=== PATIENT | female | born 1965 | race Caucasian/White ===

== ENCOUNTER 2021-04-16 02:00 | Observation (INO) | payer MEDICAID ==
[2021-04-16] VITALS (17 sets, daily range): BP systolic 110–150; BP diastolic 55–80
[~2021-04-16] VITALS: Ht 167.6 cm; Wt 92.5 kg
[2021-04-16 03:16] LABS: CLARITY,URINE CLEAR (Clear); COLOR,URINE YELLOW (Yellow); GLUCOSE, URINE NEGATIVE (Neg); KETONES,URINE 15 mg/dl (Neg); LEUKOCYTE ESTERASE ,URINE NEGATIVE (Neg); NITRITES, URINE NEGATIVE (Neg); OCCULT BLOOD,URINE NEGATIVE (Neg); PROTEIN,URINE NEGATIVE (Neg); UROBILINOGEN,URINE 0.2 E.U/dL (0.2-1.0)
[2021-04-16 03:19] LABS: UA COLLECTION TYPE CLN CATCH MIDSTREAM
[2021-04-16 04:09] LABS: BASOPHILS % (AUTO) 0.6 % (0-1); EOSINOPHILS # (AUTO) 0.2 X10'3 (0-0.9); HEMATOCRIT 39.6 % (35.0-45.0); HEMOGLOBIN 13.4 g/dl (12.0-16.0); LYMPHOCYTES # (AUTO) 2.2 X10'3 (1.1-4.8); LYMPHOCYTES % (AUTO) 28.8 % (21-51); MEAN CORPUSCULAR HEMOGLOBIN 27.9 PG (27.0-31.0); MEAN CORPUSCULAR HGB CONC 33.9 g/dL (33.0-36.5); MEAN CORPUSCULAR VOLUME 82.1 FL (78-98); MONOCYTES # (AUTO) 0.6 X10'3 (0-0.9); MONOCYTES % (AUTO) 8.4 % (2-12); NEUTROPHILS # (AUTO) 4.7 X10'3 (1.8-7.7); NEUTROPHILS % (AUTO) 60.2 % (42-75); PLATELET COUNT 190 X10'3 (140-440); RED BLOOD COUNT 4.82 X10'6 (4.20-5.60); RED CELL DISTRIBUTION WIDTH 13.1 % (11.5-14.5); WHITE BLOOD COUNT 7.8 X10'3 (4.5-11.0)
[2021-04-16 04:20] LABS: ALANINE AMINOTRANSFERASE 36 U/L (12-78); ALBUMIN 3.7 G/DL (3.4-5.0); ALBUMIN/GLOBULIN RATIO 0.9 (1.1-1.5); ALKALINE PHOSPHATASE 93 IU/L (46-116); ANION GAP 9 (8-16); ASPARTATE AMINO TRANSFERASE 13 U/L (10-37); BILIRUBIN,TOTAL 0.6 MG/DL (0.1-1.0); BLOOD UREA NITROGEN 27 MG/DL (7-18); CALCIUM 9.9 MG/DL (8.5-10.1); CHLORIDE 107 MMOL/L (99-107); GLUCOSE 123 MG/DL (70-104); LIPASE 238 U/L (73-393); POTASSIUM 4.6 MMOL/L (3.5-5.1); SODIUM 144 MMOL/L (135-145); TOTAL CARBON DIOXIDE 27.7 MMOL/L (24-32); TOTAL PROTEIN 7.6 G/DL (6.4-8.2); eGFR 58 ML/MIN
[2021-04-16] MEDS ORDERED: metoclopramide 5 mg/ml inj IV ONE (05:35)
[2021-04-16] MEDS ORDERED: normal saline 1000ML IV soln IVB ONE (05:35)
[2021-04-16] MEDS ORDERED: ketorolac tromethamine 15mg/ml inj. IV ONE (05:35)
[2021-04-16] MEDS ORDERED: METO5TAB85 PO (06:12)
[2021-04-16] MEDS: normal saline 1000ML IV soln IVB ONE ×2 (07:55→09:15)
[2021-04-16] MEDS ORDERED: piperacillin/tazo 3.375gm/50ml 50 ML IV ONE (07:55)
[2021-04-16] MEDS ORDERED: dextrose ORAL solution 15 GM/59 ML bottle PO PRN ×2 (08:15)
[2021-04-16] MEDS ORDERED: morphine 2 MG/ML inj. syringe IV PRN ×3 (08:15→16:15)
[2021-04-16] MEDS ORDERED: insulin Lispro (HumaLOG) vial - multi-dose SQ SCH (08:15)
[2021-04-16] MEDS ORDERED: potassium Cl 20 mEq SR tablet PO PRN ×2 (08:15)
[2021-04-16] MEDS ORDERED: mag hydrox/Alum hydrox/simeth 30ml oral suspension PO PRN (08:15)
[2021-04-16] MEDS ORDERED: glucagon, human recombinant 1mg kit SUBCUT PRN (08:15)
[2021-04-16] MEDS ORDERED: MESSAGE TO PHARMACY PO ONE (08:15)
[2021-04-16] MEDS ORDERED: magnesium 2GM in 50ml NS 50 ML IV PRN (08:15)
[2021-04-16] MEDS ORDERED: dextrose 50%-water 50ml dispensing syringe IV PRN ×2 (08:15)
[2021-04-16] MEDS ORDERED: magnesium 4gm in 100ml NS 100 ML IV PRN (08:15)
[2021-04-16] MEDS ORDERED: potassium Cl 40MEQ/1/2NS 520ml 520 ML IV PRN ×2 (08:15)
[2021-04-16] MEDS ORDERED: ondansetron/PF 4mg/2ml inj IV PRN ×2 (08:15→16:15)
[2021-04-16] MEDS ORDERED: magnesium hydroxide 30ml (MOM) UD suspension PO PRN (08:15)
[2021-04-16] MEDS ORDERED: acetaminophen 325mg tablet PO PRN (08:15)
[2021-04-16 08:49] LABS: HEMOGLOBIN A1C 6.7 % (4.5-6.2)
[2021-04-16] MEDS ORDERED: DICY10CA14 PO (09:07)
[2021-04-16] MEDS ORDERED: LISI-642 PO (09:07)
[2021-04-16] MEDS ORDERED: OXYB10TA4 PO (09:07)
[2021-04-16] MEDS ORDERED: GLIP10TA11 PO (09:07)
[2021-04-16] MEDS ORDERED: CALC1CAP34 PO (09:07)
[2021-04-16] MEDS ORDERED: ATOR40TA PO (09:07)
[2021-04-16] MEDS ORDERED: ASPI-1265 PO (09:07)
[2021-04-16] MEDS ORDERED: ASPI81TA52 PO (09:52)
[2021-04-16] MEDS: normal saline 1000ml 1,000 ML IV SCH ×2 (11:20→20:35)
[2021-04-16] MEDS ORDERED: BUPIVAcaine/PF 2.5 mg/ml (0.25%) 30ml vial ONE (15:55)
[2021-04-16] MEDS: piperacillin/tazo 4.5gm/100ml 100 ML IV SCH (16:00)
[2021-04-16] MEDS ORDERED: proCHLORperazine 10 MG/2 ml inj IV PRN (16:15)
[2021-04-16] MEDS ORDERED: morphine 4 MG/ML inj SYRINge IV PRN (16:15)
[2021-04-16] MEDS ORDERED: ringers solution, lacted 1,000 ML IV SCH (16:15)
[2021-04-16] MEDS ORDERED: meperidine/PF 25mg/ml syringe IV PRN ×3 (16:15)
[2021-04-16] MEDS ORDERED: sevoflurane 250ml liquid IH ONE (16:16)
[2021-04-16] MEDS ORDERED: fentaNYL/PF 50MCG/1 ML 2ML syringe ONE ×2 (16:23→16:24)
[2021-04-16] MEDS ORDERED: midazolam 1 mg/ML 2ml injection ONE (16:23)
[2021-04-16] MEDS ORDERED: propofol inj 20 ML IV ONE (16:26)
[2021-04-16] MEDS ORDERED: rocuronium 10mg/ml inj IV ONE (16:48)
[2021-04-16] MEDS ORDERED: ondansetron/PF 4mg/2ml inj ONE (16:49)
[2021-04-16] MEDS ORDERED: neostigmine methylsulfate 1 MG/ML 10ml vial ONE (16:54)
[2021-04-16] MEDS ORDERED: glycopyrrolate 0.2mg/ml inj ONE (16:54)
[2021-04-16 17:00] LABS: PRE OP INR 1.1 INR
--- NOTE | 2021-04-16 17:20 | NUR ---
ADMITTED TO PACU FROM OR ACCOMPANIED BY ANESTHESIA. INTIAL PHYSICAL ASSESSMENT DONE AND RECORDED. REPORT RECEIVED FROM ANESTHESIA.
--- NOTE | 2021-04-16 18:20 | NUR ---
PACU DISCHARGE CRITERIA MET, REPORT GIVEN TO FLOOR. DENIES PAIN OR DISCOMFORT. PT IS STABLE AND ADEQUATELY RECOVERED FROM ANESTHESIA. PT HAS STABLE AIRWAY PATENCY, RESPIRATORY FUNCTION TO INCLUDE RESPIRATORY RATE AND O2 SAT. HEART RATE, BLOOD PRESSURE STABLE AND HYDRATION ADEQUATE. MENTAL STATUS IS APPROPRIATE. PAIN AND NAUSEA CONTROLLED. REFER TO PACU SPREADSHEET FOR VITAL SIGNS.
--- NOTE | 2021-04-16 18:35 | NUR ---
Problems reprioritized. Patient report given, questions answered & plan of care reviewed with Pat RN.
[2021-04-16] MEDS ORDERED: enoxaparin 40mg/0.4ml syringe SQ SCH (20:00)
[2021-04-16] MEDS: K and/or MAG REPLACEMENT MC SCH (20:00)
[2021-04-16] MEDS: lactobacillus rhamnosus 10,000 MMU CELLS/CAPSULE PO SCH (20:23)
[2021-04-16] MEDS ORDERED: insulin glargine (Lantus) pen - multi-dose SQ SCH (21:00)
[2021-04-17 00:39] VITALS: BP 142/67
[2021-04-17] MEDS: piperacillin/tazo 4.5gm/100ml 100 ML IV SCH ×2 (00:46→08:04)
[2021-04-17] MEDS ORDERED: aspirin/acetaminophen/caffeine tablet PO PRN (01:30)
[2021-04-17] MEDS: normal saline 1000ml 1,000 ML IV SCH ×2 (04:15→05:30)
[2021-04-17 04:30] VITALS: BP 115/50
--- NOTE | 2021-04-17 06:25 | NUR ---
Patient in room [facility] 348B. I have received report from Pat RN and had the opportunity to ask questions and assume patient care.
[2021-04-17 07:00] VITALS: BP 150/69
[2021-04-17] MEDS: K and/or MAG REPLACEMENT MC SCH (08:00)
[2021-04-17] MEDS: lactobacillus rhamnosus 10,000 MMU CELLS/CAPSULE PO SCH (08:04)
[2021-04-17] MEDS ORDERED: lisinopril 5mg tablet PO SCH (08:17)
[2021-04-17] MEDS ORDERED: aspirin 81mg tablet.DR PO SCH (08:17)
[2021-04-17] MEDS ORDERED: atorvastatin 20mg tablet PO SCH (08:19)
[2021-04-17] MEDS ORDERED: calcium carbonate/vitamin D3 tablet PO SCH (08:20)
[2021-04-17] MEDS ORDERED: oxybutynin 5mg tablet PO SCH (08:20)
[2021-04-17 08:56] LABS: BASOPHILS # (AUTO) 0.1 X10'3 (0-0.2); BASOPHILS % (AUTO) 1.6 % (0-1); EOSINOPHILS % (AUTO) 0.1 % (0-6); HEMATOCRIT 34.7 % (35.0-45.0); HEMOGLOBIN 11.8 g/dl (12.0-16.0); LYMPHOCYTES # (AUTO) 1.1 X10'3 (1.1-4.8); LYMPHOCYTES % (AUTO) 12.7 % (21-51); MEAN CORPUSCULAR HEMOGLOBIN 28.1 PG (27.0-31.0); MEAN CORPUSCULAR HGB CONC 34.1 g/dL (33.0-36.5); MEAN CORPUSCULAR VOLUME 82.5 FL (78-98); MEAN PLATELET VOLUME 9.7 FL (7.4-10.4); MONOCYTES # (AUTO) 0.3 X10'3 (0-0.9); MONOCYTES % (AUTO) 3.9 % (2-12); NEUTROPHILS # (AUTO) 7.1 X10'3 (1.8-7.7); NEUTROPHILS % (AUTO) 81.7 % (42-75); PLATELET COUNT 163 X10'3 (140-440); RED BLOOD COUNT 4.21 X10'6 (4.20-5.60); RED CELL DISTRIBUTION WIDTH 12.8 % (11.5-14.5); WHITE BLOOD COUNT 8.7 X10'3 (4.5-11.0)
[2021-04-17 09:30] LABS: ALANINE AMINOTRANSFERASE 56 U/L (12-78); ALBUMIN/GLOBULIN RATIO 0.9 (1.1-1.5); ALKALINE PHOSPHATASE 77 IU/L (46-116); ANION GAP 8 (8-16); ASPARTATE AMINO TRANSFERASE 45 U/L (10-37); BILIRUBIN,TOTAL 0.5 MG/DL (0.1-1.0); BLOOD UREA NITROGEN 15 MG/DL (7-18); BUN/CREATININE RATIO 16.5 (6.6-38.0); CALCIUM 8.9 MG/DL (8.5-10.1); CHLORIDE 109 MMOL/L (99-107); CREATININE 0.91 MG/DL (0.40-0.90); GLUCOSE 172 MG/DL (70-104); MAGNESIUM 1.7 MG/DL (1.5-2.4); POTASSIUM 4.7 MMOL/L (3.5-5.1); SODIUM 142 MMOL/L (135-145); TOTAL CARBON DIOXIDE 24.9 MMOL/L (24-32); TOTAL PROTEIN 6.4 G/DL (6.4-8.2); eGFR 64 ML/MIN
[2021-04-17] MEDS ORDERED: pneumococcal 23-VAL P-sac vacc 25 mcg/0.5ml vial IMVAC ONE (10:00)
--- NOTE | 2021-04-17 10:11 | NUR ---
PAGER ID: [phone] MESSAGE: [phone] Can I get an order for Karyna Hammonds [id number] Addendum: 04/17/21 at 1012 by Nasra Soto RN Order received for Karyna
[2021-04-17] MEDS ORDERED: HYDROcodone/acetaminophen 10/325mg tab PO PRN (10:15)
[2021-04-17] MEDS ORDERED: HYDROcodone/acetaminophen 5mg/325mg tablet PO PRN (10:15)
[2021-04-17] MEDS: dicyclomine 10 MG capsule PO SCH ×2 (10:30→12:47)
[2021-04-17 11:52] VITALS: BP 158/64
--- NOTE | 2021-04-17 15:23 | NUR ---
DM Consult: Pt A1C less than 7 not appropriate for DM ed at this time. Addendum: 04/17/21 at [address] Amended: Links added.
--- NOTE | 2021-04-17 16:00 | NUR ---
Patient has been discharged on paper, waiting on a ride from family who is at work currently.
--- NOTE | 2021-04-17 16:37 | NUR ---
PAGER ID: [phone] MESSAGE: Anali - Surg [phone] Re: [phone] Kleber please call re: work release
== END 2021-04-17 17:22 | disposition home or self-care (01) ==
LOC: ER 02:01 → ED HOLD 08:15 → SUR 3N 10:34
PROVIDERS: ADMIT Family Medicine; ATTEND Family Medicine
DX: K80.00 Calculus of gallbladder with acute cholecystitis without obstruction (principal); Z20.822 Contact with and (suspected) exposure to COVID-19; E11.9 Type 2 diabetes mellitus without complications; G43.909 Migraine, unspecified, not intractable, without status migrainosus; I10 Essential (primary) hypertension; E78.5 Hyperlipidemia, unspecified; Z23 Encounter for immunization; Z79.84 Long term (current) use of oral hypoglycemic drugs; Z79.899 Other long term (current) drug therapy
CPT/HCPCS: 36415; 47562; 76700; 80053; 81003; 82948; 83036; 83690; 83735; 84145; 85025; 85610; 87081; 87635; 90471; 90732; 93005; 96361; 96365; 96366; 96372; 96375; 99285; G0378; J1885; J2250; J2270; J2405; J2543; J2704; J2710; J2765; J3010; J3490; J7030; J7120; A4215; A4618; A7000; J1650; J1815

== ENCOUNTER 2021-05-05 19:05 | Emergency (ER) | payer MEDICAID ==
[~2021-05-05] VITALS: Ht 167.6 cm; Wt 90.7 kg
[~2021-05-05 19:05] MED LIST: ASPI81TA52 PO; ATOR40TA PO; CALC1CAP34 PO; DICY10CA14 PO; GLIP10TA11 PO; LISI-642 PO; OXYB10TA4 PO
[2021-05-05 19:45] LABS: CLARITY,URINE SLIGHTLY CLOUDY (Clear); COLOR,URINE YELLOW (Yellow); GLUCOSE, URINE NEGATIVE (Neg); KETONES,URINE TRACE mg/dl (Neg); LEUKOCYTE ESTERASE ,URINE TRACE (Neg); NITRITES, URINE NEGATIVE (Neg); OCCULT BLOOD,URINE NEGATIVE (Neg); PROTEIN,URINE 100 mg/dl (Neg)
[2021-05-05 19:47] LABS: UA COLLECTION TYPE CLN CATCH MIDSTREAM
[2021-05-05 19:47] LABS: BASOPHILS # (AUTO) 0.1 X10'3 (0-0.2); BASOPHILS % (AUTO) 0.5 % (0-1); EOSINOPHILS # (AUTO) 0.1 X10'3 (0-0.9); EOSINOPHILS % (AUTO) 1.1 % (0-6); HEMATOCRIT 36.7 % (35.0-45.0); HEMOGLOBIN 12.3 g/dl (12.0-16.0); LYMPHOCYTES # (AUTO) 2.3 X10'3 (1.1-4.8); LYMPHOCYTES % (AUTO) 22.5 % (21-51); MEAN CORPUSCULAR HEMOGLOBIN 27.2 PG (27.0-31.0); MEAN CORPUSCULAR HGB CONC 33.4 g/dL (33.0-36.5); MEAN CORPUSCULAR VOLUME 81.5 FL (78-98); MEAN PLATELET VOLUME 9.6 FL (7.4-10.4); MONOCYTES # (AUTO) 0.6 X10'3 (0-0.9); MONOCYTES % (AUTO) 6.3 % (2-12); NEUTROPHILS # (AUTO) 7.1 X10'3 (1.8-7.7); NEUTROPHILS % (AUTO) 69.6 % (42-75); PLATELET COUNT 217 X10'3 (140-440); RED CELL DISTRIBUTION WIDTH 12.7 % (11.5-14.5); WHITE BLOOD COUNT 10.2 X10'3 (4.5-11.0)
[2021-05-05 19:53] LABS: BACTERIA,URINE 1+ /HPF (Neg); RBC,URINE 0-2 /HPF (0-2)
[2021-05-05 19:54] LABS: CAL OXALATE CRYSTALS 2+ /HPF (NEGATIVE); MUCUS STRANDS FEW /LPF (Neg); SQUAMOUS EPITHELIAL CELL,UR MODERATE /LPF (FEW)
[2021-05-05 19:57] LABS: ALANINE AMINOTRANSFERASE 31 U/L (12-78); ALBUMIN 3.4 G/DL (3.4-5.0); ALBUMIN/GLOBULIN RATIO 0.9 (1.1-1.5); ALKALINE PHOSPHATASE 88 IU/L (46-116); ANION GAP 13 (8-16); ASPARTATE AMINO TRANSFERASE 11 U/L (10-37); BILIRUBIN,TOTAL 0.5 MG/DL (0.1-1.0); BLOOD UREA NITROGEN 18 MG/DL (7-18); CALCIUM 9.4 MG/DL (8.5-10.1); CHLORIDE 110 MMOL/L (99-107); CREATININE 1.06 MG/DL (0.40-0.90); GLUCOSE 75 MG/DL (70-104); LIPASE 215 U/L (73-393); POTASSIUM 3.8 MMOL/L (3.5-5.1); SODIUM 147 MMOL/L (135-145); TOTAL CARBON DIOXIDE 23.6 MMOL/L (24-32); TOTAL PROTEIN 7.4 G/DL (6.4-8.2); eGFR 54 ML/MIN
[2021-05-05 22:37] VITALS: BP 115/62
== END 2021-05-05 22:38 | disposition home or self-care (01) ==
LOC: ER 19:05
DX: R19.7 Diarrhea, unspecified (principal); G89.29 Other chronic pain; E11.9 Type 2 diabetes mellitus without complications; F17.200 Nicotine dependence, unspecified, uncomplicated; Z90.49 Acquired absence of other specified parts of digestive tract; Z79.82 Long term (current) use of aspirin; Z79.899 Other long term (current) drug therapy
CPT/HCPCS: 36415; 80053; 81001; 83690; 85025; 87077; 87088; 87186; 99283

== ENCOUNTER 2022-07-04 14:29 | Emergency (ER) | payer MEDICAID ==
[~2022-07-04] VITALS: Ht 167.6 cm; Wt 79.2 kg
[2022-07-04 14:48] VITALS: BP 128/74
== END 2022-07-04 15:40 | disposition home or self-care (01) ==
LOC: ER 14:30
DX: S62.654A Nondisplaced fracture of middle phalanx of right ring finger, initial encounter for closed fracture (principal); M79.644 Pain in right finger(s); E11.9 Type 2 diabetes mellitus without complications; G89.29 Other chronic pain; Z90.49 Acquired absence of other specified parts of digestive tract; Z79.82 Long term (current) use of aspirin; Z79.899 Other long term (current) drug therapy; W18.09XA Striking against other object with subsequent fall, initial encounter; Y93.01 Activity, walking, marching and hiking; Y92.89 Other specified places as the place of occurrence of the external cause; Y99.8 Other external cause status
CPT/HCPCS: 29130; 73140; 99283

== ENCOUNTER 2022-09-22 15:30 | Emergency (ER) | payer MEDICAID ==
[~2022-09-22] VITALS: Ht 167.6 cm; Wt 74.2 kg
[2022-09-22 16:24] VITALS: BP 146/58
[2022-09-22] MEDS ORDERED: ondansetron 4mg rapidly disintigrating tab PO ONE (18:15)
[2022-09-22] MEDS ORDERED: ONDA8TAB13 PO (18:15)
[2022-09-22] MEDS ORDERED: ibuprofen tablet 400 MG TABLET PO ONE (18:15)
[2022-09-22] MEDS ORDERED: acetaminophen 325mg tablet PO ONE (18:15)
[2022-09-22] MEDS ORDERED: ibuprofen 200mg tablet PO ONE (18:20)
== END 2022-09-22 18:34 | disposition home or self-care (01) ==
LOC: ER 15:30
DX: B34.9 Viral infection, unspecified (principal); J34.89 Other specified disorders of nose and nasal sinuses; Z20.822 Contact with and (suspected) exposure to COVID-19; E11.9 Type 2 diabetes mellitus without complications; G89.29 Other chronic pain; M54.50 Low back pain, unspecified; Z90.49 Acquired absence of other specified parts of digestive tract
CPT/HCPCS: 87502; 87503; 87635; 99284; C9803

== ENCOUNTER 2023-02-09 14:05 | Emergency (ER) | payer MEDICAID ==
[~2023-02-09] VITALS: Ht 167.6 cm; Wt 74.0 kg
[~2023-02-09 14:05] MED LIST changes: +ONDA8TAB13 PO
[2023-02-09 14:44] LABS: BASOPHILS % (AUTO) 0.2 % (0-1); EOSINOPHILS # (AUTO) 0.1 X10'3 (0-0.9); EOSINOPHILS % (AUTO) 0.6 % (0-6); HEMATOCRIT 41.2 % (35.0-45.0); HEMOGLOBIN 14.1 g/dl (12.0-16.0); LYMPHOCYTES # (AUTO) 1.6 X10'3 (1.1-4.8); MEAN CORPUSCULAR HEMOGLOBIN 27.3 PG (27.0-31.0); MEAN CORPUSCULAR HGB CONC 34.1 g/dL (33.0-36.5); MEAN CORPUSCULAR VOLUME 79.9 FL (78-98); MEAN PLATELET VOLUME 9.4 FL (7.4-10.4); MONOCYTES # (AUTO) 0.6 X10'3 (0-0.9); MONOCYTES % (AUTO) 5.6 % (2-12); NEUTROPHILS # (AUTO) 7.7 X10'3 (1.8-7.7); NEUTROPHILS % (AUTO) 77.6 % (42-75); PLATELET COUNT 210 X10'3 (140-440); RED BLOOD COUNT 5.16 X10'6 (4.20-5.60); RED CELL DISTRIBUTION WIDTH 13.3 % (11.5-14.5); WHITE BLOOD COUNT 9.9 X10'3 (4.5-11.0)
[2023-02-09 15:07] LABS: ALANINE AMINOTRANSFERASE 20 U/L (12-78); ALBUMIN 3.5 G/DL (3.4-5.0); ALBUMIN/GLOBULIN RATIO 0.8 (1.1-1.5); ALKALINE PHOSPHATASE 159 IU/L (46-116); ANION GAP 7 (8-16); ASPARTATE AMINO TRANSFERASE 19 U/L (10-37); BILIRUBIN,TOTAL 0.5 MG/DL (0.1-1.0); BLOOD UREA NITROGEN 17 MG/DL (7-18); BUN/CREATININE RATIO 26.2 (10.0-20.0); CALCIUM 9.6 MG/DL (8.5-10.1); CHLORIDE 108 MMOL/L (99-107); CREATININE 0.65 MG/DL (0.40-0.90); GLUCOSE 153 MG/DL (70-104); SODIUM 142 MMOL/L (135-145); TOTAL CARBON DIOXIDE 26.8 MMOL/L (24-32); TOTAL PROTEIN 7.7 G/DL (6.4-8.2); eGFR > 90 ML/MIN
[2023-02-09] MEDS ORDERED: normal saline 1000ml 1,000 ML IV ONE ×2 (18:45→21:35)
[2023-02-09] MEDS ORDERED: metoclopramide 5 mg/ml inj IV ONE (18:45)
[2023-02-09] MEDS ORDERED: diphenhydrAMINE 50 mg/ml inj IV ONE (18:45)
[2023-02-09 20:45] VITALS: BP 153/74
[2023-02-09 21:41] LABS: CLARITY,URINE CLOUDY (Clear); COLOR,URINE YELLOW (Yellow); GLUCOSE, URINE NEGATIVE (Neg); KETONES,URINE NEGATIVE (Neg); LEUKOCYTE ESTERASE ,URINE NEGATIVE (Neg); NITRITES, URINE NEGATIVE (Neg); OCCULT BLOOD,URINE TRACE-INTACT (Neg); PROTEIN,URINE 30 mg/dl (Neg); UROBILINOGEN,URINE 0.2 E.U/dL (0.2-1.0)
[2023-02-09 21:45] LABS: UA COLLECTION TYPE CLN CATCH MIDSTREAM
[2023-02-09 21:46] LABS: SQUAMOUS EPITHELIAL CELL,UR MANY /LPF (FEW)
[2023-02-09 21:47] LABS: BACTERIA,URINE FEW /HPF (Neg); CAL OXALATE CRYSTALS 4+ /HPF (NEGATIVE); RBC,URINE 0-2 /HPF (0-2); WBC,URINE 0-4 /HPF (0-4)
[2023-02-09] MEDS ORDERED: acetaminophen 325mg tablet PO ONE (22:35)
[2023-02-09] MEDS ORDERED: ibuprofen tablet 400 MG TABLET PO ONE (22:35)
== END 2023-02-10 00:16 | disposition home or self-care (01) ==
LOC: ER 14:05
DX: R11.2 Nausea with vomiting, unspecified (principal); G43.909 Migraine, unspecified, not intractable, without status migrainosus; R10.9 Unspecified abdominal pain; R19.7 Diarrhea, unspecified; E11.9 Type 2 diabetes mellitus without complications; Z90.49 Acquired absence of other specified parts of digestive tract
CPT/HCPCS: 36415; 71045; 80053; 81001; 82948; 83880; 84484; 85025; 93005; 96361; 96374; 96375; 99285; J1200; J2765; J7030

== ENCOUNTER 2024-03-17 14:21 | Outpatient (CLI) | payer MEDICAID ==
[~2024-03-17 14:21] MED LIST changes: +DICY-19 PO; -DICY10CA14 PO
== END 2024-03-17 23:59 | disposition home or self-care (01) ==
LOC: CARD DIAG 14:21
PROVIDERS: ATTEND Family Medicine
DX: I34.81 Nonrheumatic mitral (valve) annulus calcification (principal); R55 Syncope and collapse
CPT/HCPCS: 93306

== ENCOUNTER 2024-04-16 06:49 | Emergency (ER) | payer MEDICAID ==
[~2024-04-16] VITALS: Ht 167.6 cm; Wt 84.0 kg
[2024-04-16 08:36] LABS: BASOPHILS % (AUTO) 0.2 % (0-1); EOSINOPHILS # (AUTO) 0.1 X10'3 (0-0.9); EOSINOPHILS % (AUTO) 0.8 % (0-6); HEMATOCRIT 38.6 % (35.0-45.0); HEMOGLOBIN 12.9 g/dl (12.0-16.0); LYMPHOCYTES # (AUTO) 1.4 X10'3 (1.1-4.8); LYMPHOCYTES % (AUTO) 20.1 % (21-51); MEAN CORPUSCULAR HEMOGLOBIN 26.6 PG (27.0-31.0); MEAN CORPUSCULAR HGB CONC 33.3 g/dL (33.0-36.5); MEAN CORPUSCULAR VOLUME 79.9 FL (78-98); MEAN PLATELET VOLUME 9.2 FL (7.4-10.4); MONOCYTES # (AUTO) 0.3 X10'3 (0-0.9); NEUTROPHILS # (AUTO) 5.1 X10'3 (1.8-7.7); NEUTROPHILS % (AUTO) 74.9 % (42-75); PLATELET COUNT 165 X10'3 (140-440); RED BLOOD COUNT 4.84 X10'6 (4.20-5.60); RED CELL DISTRIBUTION WIDTH 13.3 % (11.5-14.5); WHITE BLOOD COUNT 6.8 X10'3 (4.5-11.0)
[2024-04-16] MEDS: ondansetron/PF 4mg/2ml inj IV ONE (08:37)
[2024-04-16] MEDS: pantoprazole 40 MG vial IV ONE (08:38)
[2024-04-16 08:56] LABS: ALANINE AMINOTRANSFERASE 14 U/L (12-78); ALBUMIN 3.1 G/DL (3.4-5.0); ALBUMIN/GLOBULIN RATIO 0.8 (1.1-1.5); ALKALINE PHOSPHATASE 132 IU/L (46-116); ANION GAP 2 (8-16); ASPARTATE AMINO TRANSFERASE 11 U/L (10-37); BILIRUBIN,TOTAL 0.4 MG/DL (0.1-1.0); BLOOD UREA NITROGEN 14 MG/DL (7-18); BUN/CREATININE RATIO 21.5 (10.0-20.0); CALCIUM 8.8 MG/DL (8.5-10.1); CHLORIDE 109 MMOL/L (99-107); CREATININE 0.65 MG/DL (0.40-0.90); GLUCOSE 131 MG/DL (70-104); LIPASE 37 U/L (16-77); POTASSIUM 4.3 MMOL/L (3.5-5.1); SODIUM 142 MMOL/L (135-145); TOTAL CARBON DIOXIDE 31.2 MMOL/L (24-32); TOTAL PROTEIN 7.2 G/DL (6.4-8.2); eCRCL 90 ML/MIN; eGFR > 90 ML/MIN
[2024-04-16] MEDS ORDERED: PANT-47 PO (09:34)
[2024-04-16] MEDS ORDERED: LACT1CAP76 PO (09:34)
[2024-04-16] MEDS ORDERED: LISI-642 PO (09:34)
[2024-04-16] MEDS ORDERED: ONDA4TAB12 PO (09:34)
[2024-04-16] MEDS ORDERED: GLIP10TA11 PO (09:34)
[2024-04-16 09:45] LABS: BILIRUBIN,URINE NEGATIVE (Neg); CLARITY,URINE CLOUDY (Clear); COLOR,URINE YELLOW (Yellow); GLUCOSE, URINE NEGATIVE (Neg); KETONES,URINE NEGATIVE (Neg); LEUKOCYTE ESTERASE ,URINE SMALL (Neg); NITRITES, URINE POSITIVE (Neg); OCCULT BLOOD,URINE TRACE-INTACT (Neg); PH,URINE 6.5 (4.8-8.0); PROTEIN,URINE NEGATIVE (Neg); UROBILINOGEN,URINE 0.2 E.U/dL (0.2-1.0)
[2024-04-16 09:46] LABS: UA COLLECTION TYPE NON-SPECIFIED
[2024-04-16] MEDS: acetaminophen 1,000mg/100ml IV 100 ML IV ONE (09:50)
[2024-04-16 10:28] VITALS: BP 136/80; PULSE 74; RESP 16; TEMP 98.4; O2SAT 97
[2024-04-16 11:04] LABS: BACTERIA,URINE 4+ /HPF (Neg); RBC,URINE NONE SEEN /HPF (0-2)
[2024-04-16 11:10] LABS: SQUAMOUS EPITHELIAL CELL,UR MANY /LPF (FEW)
== END 2024-04-16 10:31 | disposition home or self-care (01) ==
LOC: ER 06:50
DX: R11.2 Nausea with vomiting, unspecified (principal); G43.909 Migraine, unspecified, not intractable, without status migrainosus; R10.11 Right upper quadrant pain; E11.9 Type 2 diabetes mellitus without complications; Z79.82 Long term (current) use of aspirin; Z79.899 Other long term (current) drug therapy; Z79.2 Long term (current) use of antibiotics
CPT/HCPCS: 36415; 80053; 81001; 83690; 84484; 85025; 96365; 96374; 96375; 99284; C9113; J0131; J2405

== ENCOUNTER → 2024-06-04 | Outpatient (CLI) | payer MEDICAID ==
[~2024-06-04] MED LIST changes: +LACT1CAP76 PO; +ONDA-243 PO; +ONDA-245 PO; -ONDA8TAB13 PO; +PANT-47 PO
== END | disposition home or self-care (01) ==
LOC: RAD 12:16
PROVIDERS: ATTEND Family Medicine
DX: E04.8 Other specified nontoxic goiter (principal); E05.90 Thyrotoxicosis, unspecified without thyrotoxic crisis or storm
CPT/HCPCS: 76536

== ENCOUNTER 2024-10-17 20:19 | Inpatient (IN) | payer MEDICAID ==
[~2024-10-17] VITALS: Ht 167.6 cm; Wt 90.9 kg
[~2024-10-17 20:19] MED LIST changes: -GLIP10TA11 PO; +GLIP10TA18 PO
[2024-10-17] MEDS: acetaminophen 325mg tablet PO ONE (20:45)
[2024-10-17] MEDS: normal saline 1000ml 1,000 ML IV ONE ×3 (20:47→22:59)
[2024-10-17 21:03] LABS: BASOPHILS # (AUTO) 0.1 X10'3 (0-0.2); BASOPHILS % (AUTO) 0.4 % (0-1); EOSINOPHILS # (AUTO) 0.1 X10'3 (0-0.9); EOSINOPHILS % (AUTO) 0.4 % (0-6); HEMATOCRIT 40.2 % (35.0-45.0); HEMOGLOBIN 13.5 g/dl (12.0-16.0); LYMPHOCYTES # (AUTO) 1.7 X10'3 (1.1-4.8); LYMPHOCYTES % (AUTO) 8.2 % (21-51); MEAN CORPUSCULAR HEMOGLOBIN 27.6 PG (27.0-31.0); MEAN CORPUSCULAR HGB CONC 33.7 g/dL (33.0-36.5); MEAN CORPUSCULAR VOLUME 81.8 FL (78-98); MEAN PLATELET VOLUME 9.5 FL (7.4-10.4); MONOCYTES # (AUTO) 0.8 X10'3 (0-0.9); MONOCYTES % (AUTO) 4.1 % (2-12); NEUTROPHILS # (AUTO) 17.6 X10'3 (1.8-7.7); NEUTROPHILS % (AUTO) 86.9 % (42-75); PLATELET COUNT 240 X10'3 (140-440); RED BLOOD COUNT 4.91 X10'6 (4.20-5.60); RED CELL DISTRIBUTION WIDTH 14.1 % (11.5-14.5); WHITE BLOOD COUNT 20.3 X10'3 (4.5-11.0)
[2024-10-17] MEDS: CefTRIAXone 2gm/D5W 50ml BAG 50 ML IV SCH (21:04)
[2024-10-17 21:19] LABS: ALANINE AMINOTRANSFERASE 22 U/L (12-78); ALBUMIN 3.5 G/DL (3.4-5.0); ALBUMIN/GLOBULIN RATIO 0.7 (1.1-1.5); ALKALINE PHOSPHATASE 160 IU/L (46-116); ANION GAP 13 (8-16); BILIRUBIN,TOTAL 0.5 MG/DL (0.1-1.0); BLOOD UREA NITROGEN 20 MG/DL (7-18); BUN/CREATININE RATIO 22.5 (10.0-20.0); CALCIUM 9.3 MG/DL (8.5-10.1); CHLORIDE 105 MMOL/L (99-107); CREATININE 0.89 MG/DL (0.40-0.90); GLUCOSE 171 MG/DL (70-104); SODIUM 143 MMOL/L (135-145); TOTAL PROTEIN 8.5 G/DL (6.4-8.2); eCRCL 65 ML/MIN; eGFR 65 ML/MIN
[2024-10-17 21:25] LABS: ASPARTATE AMINO TRANSFERASE 27 U/L (10-37); POTASSIUM 4.3 MMOL/L (3.5-5.1)
[2024-10-17 22:31] LABS: BILIRUBIN,URINE NEGATIVE (Neg); CLARITY,URINE SLIGHTLY CLOUDY (Clear); COLOR,URINE YELLOW (Yellow); GLUCOSE, URINE NEGATIVE (Neg); KETONES,URINE NEGATIVE (Neg); LEUKOCYTE ESTERASE ,URINE NEGATIVE (Neg); NITRITES, URINE POSITIVE (Neg); OCCULT BLOOD,URINE MODERATE (Neg); PH,URINE 5.5 (4.8-8.0); PROTEIN,URINE NEGATIVE (Neg); UROBILINOGEN,URINE 0.2 E.U/dL (0.2-1.0)
[2024-10-17 22:43] LABS: BACTERIA,URINE 2+ /HPF (Neg); SQUAMOUS EPITHELIAL CELL,UR FEW /LPF (FEW); UA COLLECTION TYPE CLN CATCH MIDSTREAM
[2024-10-17 22:44] LABS: RBC,URINE 0-2 /HPF (0-2)
[2024-10-17] MEDS: azithromycin/NS 500mg/250ml 250 ML IV ONE (23:00)
[2024-10-17] MEDS ORDERED: potassium Cl 40MEQ/1/2NS 520ml 520 ML IV PRN (23:50)
[2024-10-17] MEDS ORDERED: mag hydrox/Alum hydrox/simeth 30ml oral suspension PO PRN (23:50)
[2024-10-17] MEDS ORDERED: morphine 2 MG/ML inj. syringe IV PRN ×2 (23:50)
[2024-10-17] MEDS ORDERED: magnesium sulf-water 4G/100mL 100 ML IV PRN (23:50)
[2024-10-17] MEDS ORDERED: magnesium sulf-water 2g/50mL 50 ML IV PRN (23:50)
[2024-10-17] MEDS ORDERED: magnesium hydroxide 30ml (MOM) UD suspension PO PRN (23:50)
[2024-10-18] VITALS (7 sets, daily range): BP systolic 125–143; BP diastolic 53–68; PULSE 102–121; RESP 16–25; TEMP 97.7–98.4; O2SAT 91–96
[2024-10-18] MEDS ORDERED: AMIT25TA9 PO (00:13)
[2024-10-18] MEDS ORDERED: LISI20TA28 PO (00:13)
[2024-10-18] MEDS: normal saline 1000ml 1,000 ML IV SCH (01:11)
[2024-10-18 03:34] LABS: BASOPHILS # (AUTO) 0.1 X10'3 (0-0.2); BASOPHILS % (AUTO) 0.4 % (0-1); EOSINOPHILS # (AUTO) 0.1 X10'3 (0-0.9); EOSINOPHILS % (AUTO) 0.4 % (0-6); HEMATOCRIT 33.1 % (35.0-45.0); LYMPHOCYTES # (AUTO) 1.7 X10'3 (1.1-4.8); LYMPHOCYTES % (AUTO) 9.2 % (21-51); MEAN CORPUSCULAR HEMOGLOBIN 27.3 PG (27.0-31.0); MEAN CORPUSCULAR HGB CONC 33.3 g/dL (33.0-36.5); MEAN CORPUSCULAR VOLUME 82.2 FL (78-98); MEAN PLATELET VOLUME 9.2 FL (7.4-10.4); MONOCYTES # (AUTO) 1.1 X10'3 (0-0.9); MONOCYTES % (AUTO) 5.8 % (2-12); NEUTROPHILS # (AUTO) 15.7 X10'3 (1.8-7.7); NEUTROPHILS % (AUTO) 84.2 % (42-75); PLATELET COUNT 155 X10'3 (140-440); RED BLOOD COUNT 4.02 X10'6 (4.20-5.60); RED CELL DISTRIBUTION WIDTH 13.6 % (11.5-14.5); WHITE BLOOD COUNT 18.7 X10'3 (4.5-11.0)
[2024-10-18 03:46] LABS: ALANINE AMINOTRANSFERASE 12 U/L (12-78); ALBUMIN 2.6 G/DL (3.4-5.0); ALBUMIN/GLOBULIN RATIO 0.7 (1.1-1.5); ALKALINE PHOSPHATASE 117 IU/L (46-116); ANION GAP 8 (8-16); ASPARTATE AMINO TRANSFERASE 8 U/L (10-37); BILIRUBIN,TOTAL 0.4 MG/DL (0.1-1.0); BLOOD UREA NITROGEN 15 MG/DL (7-18); BUN/CREATININE RATIO 18.5 (10.0-20.0); CALCIUM 7.4 MG/DL (8.5-10.1); CHLORIDE 111 MMOL/L (99-107); CREATININE 0.81 MG/DL (0.40-0.90); GLUCOSE 155 MG/DL (70-104); MAGNESIUM 1.5 MG/DL (1.5-2.4); POTASSIUM 3.8 MMOL/L (3.5-5.1); SODIUM 142 MMOL/L (135-145); TOTAL CARBON DIOXIDE 22.7 MMOL/L (24-32); TOTAL PROTEIN 6.4 G/DL (6.4-8.2); eCRCL 72 ML/MIN; eGFR 73 ML/MIN
[2024-10-18 04:17] LABS: HEMOGLOBIN A1C 6.2 % (4.5-6.2)
[2024-10-18] MEDS: docusate sod 100mg capsule PO SCH (06:47)
[2024-10-18] MEDS: K and/or MAG REPLACEMENT MC SCH (06:47)
[2024-10-18] MEDS: CefTRIAXone 2gm/D5W 50ml BAG 50 ML IV SCH (08:21)
[2024-10-18] MEDS: lisinopril 20mg tablet PO SCH (08:21)
[2024-10-18 08:34] LABS: PRO BRAIN NATRIURETIC PEPTIDE 142 PG/ML (0-125)
[2024-10-18] MEDS: azithromycin/NS 500mg/250ml 250 ML IV SCH (09:25)
[2024-10-18] MEDS: furosemide 10 MG/1 ML 10ml inj IV ONE (12:08)
[2024-10-18] MEDS: levoFLOXACIN-Levaquin 500mg/D5 100 ML IV SCH (17:06)
[2024-10-18] MEDS: ipratropium/albuterol 3ml nebule NEB PRN (17:11)
[2024-10-18] MEDS ORDERED: DEXTROSE 15 GM of carb/4 tabs (each vial/BOTTLE has 4 tablets) PO PRN ×2 (17:35)
[2024-10-18] MEDS ORDERED: glucagon, human recombinant 1mg kit SUBCUT PRN (17:35)
[2024-10-18] MEDS ORDERED: dextrose 50%-water 50ml dispensing syringe IV PRN ×2 (17:35)
[2024-10-18] MEDS: amitriptyline 25mg tablet PO SCH (19:19)
[2024-10-18] MEDS: enoxaparin 40mg/0.4ml syringe SQ SCH (19:20)
[2024-10-18] MEDS ORDERED: iohexol 350MG/ML 100ml bottle IV ONE (22:21)
[2024-10-18] MEDS: ketorolac trometh 15mg/ml vial 15 MG/ML ML IV ONE (22:29)
[2024-10-18] MEDS: proCHLORperazine 10 MG/2 ml inj IV ONE (22:34)
[2024-10-18] MEDS: diphenhydrAMINE 50 mg/ml inj IV ONE (22:36)
[2024-10-19] VITALS (10 sets, daily range): BP systolic 100–136; BP diastolic 56–88; PULSE 82–104; RESP 14–21; TEMP 97.5–99; O2SAT 92–96
[2024-10-19 07:31] LABS: BASOPHILS % (AUTO) 0.3 % (0-1); EOSINOPHILS # (AUTO) 0.1 X10'3 (0-0.9); EOSINOPHILS % (AUTO) 1.4 % (0-6); HEMATOCRIT 31.8 % (35.0-45.0); LYMPHOCYTES # (AUTO) 2.4 X10'3 (1.1-4.8); LYMPHOCYTES % (AUTO) 37.5 % (21-51); MEAN CORPUSCULAR HEMOGLOBIN 28.2 PG (27.0-31.0); MEAN CORPUSCULAR HGB CONC 34.4 g/dL (33.0-36.5); MEAN CORPUSCULAR VOLUME 81.9 FL (78-98); MEAN PLATELET VOLUME 9.6 FL (7.4-10.4); MONOCYTES # (AUTO) 0.6 X10'3 (0-0.9); MONOCYTES % (AUTO) 10.2 % (2-12); NEUTROPHILS # (AUTO) 3.2 X10'3 (1.8-7.7); NEUTROPHILS % (AUTO) 50.6 % (42-75); PLATELET COUNT 148 X10'3 (140-440); RED BLOOD COUNT 3.89 X10'6 (4.20-5.60); RED CELL DISTRIBUTION WIDTH 13.6 % (11.5-14.5); WHITE BLOOD COUNT 6.3 X10'3 (4.5-11.0)
[2024-10-19] MEDS: furosemide 10 MG/1 ML 10ml inj IV SCH (08:04)
[2024-10-19] MEDS: azithromycin 250mg tablet PO SCH (08:05)
[2024-10-19 08:12] LABS: ALANINE AMINOTRANSFERASE 15 U/L (12-78); ALBUMIN 2.5 G/DL (3.4-5.0); ALBUMIN/GLOBULIN RATIO 0.6 (1.1-1.5); ALKALINE PHOSPHATASE 112 IU/L (46-116); ANION GAP 7 (8-16); ASPARTATE AMINO TRANSFERASE 10 U/L (10-37); BILIRUBIN,TOTAL 0.4 MG/DL (0.1-1.0); BLOOD UREA NITROGEN 11 MG/DL (7-18); BUN/CREATININE RATIO 14.1 (10.0-20.0); CALCIUM 7.8 MG/DL (8.5-10.1); CHLORIDE 108 MMOL/L (99-107); CREATININE 0.78 MG/DL (0.40-0.90); GLUCOSE 115 MG/DL (70-104); MAGNESIUM 1.8 MG/DL (1.5-2.4); POTASSIUM 3.2 MMOL/L (3.5-5.1); SODIUM 142 MMOL/L (135-145); TOTAL CARBON DIOXIDE 26.8 MMOL/L (24-32); TOTAL PROTEIN 6.4 G/DL (6.4-8.2); eCRCL 74 ML/MIN; eGFR 76 ML/MIN
[2024-10-19] MEDS: potassium Cl 20 mEq SR tablet PO PRN ×2 (08:16→19:52)
[2024-10-19] MEDS: magnesium Cl slow-release 64mg tablet PO PRN (08:16)
[2024-10-19] MEDS: acetaminophen 325mg tablet PO PRN (08:24)
[2024-10-19] MEDS: ondansetron/PF 4mg/2ml inj IV PRN (08:25)
[2024-10-20 02:00] VITALS: BP 132/63; PULSE 85; RESP 19; TEMP 98.2; O2SAT 97
[2024-10-20 03:17] LABS: BASOPHILS % (AUTO) 0.4 % (0-1); EOSINOPHILS # (AUTO) 0.1 X10'3 (0-0.9); EOSINOPHILS % (AUTO) 1.8 % (0-6); HEMATOCRIT 35.8 % (35.0-45.0); HEMOGLOBIN 11.9 g/dl (12.0-16.0); LYMPHOCYTES % (AUTO) 40.3 % (21-51); MEAN CORPUSCULAR HEMOGLOBIN 27.2 PG (27.0-31.0); MEAN CORPUSCULAR HGB CONC 33.3 g/dL (33.0-36.5); MEAN CORPUSCULAR VOLUME 81.6 FL (78-98); MEAN PLATELET VOLUME 8.8 FL (7.4-10.4); MONOCYTES # (AUTO) 0.6 X10'3 (0-0.9); MONOCYTES % (AUTO) 8.5 % (2-12); NEUTROPHILS # (AUTO) 3.7 X10'3 (1.8-7.7); PLATELET COUNT 182 X10'3 (140-440); RED BLOOD COUNT 4.39 X10'6 (4.20-5.60); RED CELL DISTRIBUTION WIDTH 13.6 % (11.5-14.5); WHITE BLOOD COUNT 7.6 X10'3 (4.5-11.0)
[2024-10-20 03:38] LABS: ALANINE AMINOTRANSFERASE 22 U/L (12-78); ALBUMIN 2.9 G/DL (3.4-5.0); ALBUMIN/GLOBULIN RATIO 0.7 (1.1-1.5); ALKALINE PHOSPHATASE 117 IU/L (46-116); ANION GAP 7 (8-16); ASPARTATE AMINO TRANSFERASE 15 U/L (10-37); BILIRUBIN,TOTAL 0.4 MG/DL (0.1-1.0); BLOOD UREA NITROGEN 12 MG/DL (7-18); BUN/CREATININE RATIO 15.2 (10.0-20.0); CALCIUM 8.3 MG/DL (8.5-10.1); CHLORIDE 109 MMOL/L (99-107); CREATININE 0.79 MG/DL (0.40-0.90); GLUCOSE 105 MG/DL (70-104); MAGNESIUM 2.1 MG/DL (1.5-2.4); SODIUM 143 MMOL/L (135-145); TOTAL PROTEIN 7.2 G/DL (6.4-8.2); eCRCL 74 ML/MIN; eGFR 75 ML/MIN
[2024-10-20 06:00] VITALS: BP 121/58; PULSE 86; RESP 18; TEMP 98.7; O2SAT 95
[2024-10-20 08:00] VITALS: RESP 18; O2SAT 95
[2024-10-20] MEDS ORDERED: LEVO750T68 PO (08:35)
[2024-10-20] MEDS ORDERED: FURO-150 PO (08:35)
[2024-10-20] MEDS ORDERED: IPRA3AMP9 NEB (08:35)
[2024-10-20] MEDS ORDERED: GUAI600T45 PO (08:35)
[2024-10-20 11:00] VITALS: BP 146/62; PULSE 106; RESP 18; TEMP 99.6; O2SAT 93
== END 2024-10-20 13:35 | disposition home or self-care (01) | DRG 720 ==
LOC: ER 20:20 → ED HOLD 22:48 → EDBEDREQ 10-18 16:25 → PCU 3S 10-18 16:55
PROVIDERS: ADMIT Internal Medicine Critical Care Medicine; ATTEND Internal Medicine
PROC: B32T1ZZ Computerized Tomography (CT Scan) of Left Pulmonary Artery using Low Osmolar Contrast (ICD-10-PCS; principal; 2024-10-18)
PROC: B3201ZZ Computerized Tomography (CT Scan) of Thoracic Aorta using Low Osmolar Contrast (ICD-10-PCS; 2024-10-18)
PROC: B32S1ZZ Computerized Tomography (CT Scan) of Right Pulmonary Artery using Low Osmolar Contrast (ICD-10-PCS; 2024-10-18)
DX: A41.89 Other specified sepsis (principal); J15.8 Pneumonia due to other specified bacteria; I50.30 Unspecified diastolic (congestive) heart failure; E83.51 Hypocalcemia; I11.0 Hypertensive heart disease with heart failure; E11.9 Type 2 diabetes mellitus without complications; D64.9 Anemia, unspecified; Z20.822 Contact with and (suspected) exposure to COVID-19; E87.6 Hypokalemia; G43.909 Migraine, unspecified, not intractable, without status migrainosus; G89.29 Other chronic pain; K82.9 Disease of gallbladder, unspecified; M54.9 Dorsalgia, unspecified; N39.0 Urinary tract infection, site not specified; G47.30 Sleep apnea, unspecified; Z83.3 Family history of diabetes mellitus; Z59.01 Sheltered homelessness
CPT/HCPCS: 36415; 71045; 71250; 71275; 80053; 81001; 82948; 83036; 83605; 83735; 83880; 84145; 84484; 85025; 87040; 87081; 87088; 87502; 87503; 87811; 93005; 93306; 94640; 94760; G0378; J0456; J0696; J0780; J1200; J1650; J1885; J1940; J1956; J2405; J7030; Q9967

== ENCOUNTER 2025-05-11 13:46 | Outpatient (CLI) | payer MEDICAID ==
[~2025-05-11 13:46] MED LIST changes: +AMIT25TA9 PO; -ASPI81TA52 PO; -ATOR40TA PO; -CALC1CAP34 PO; -DICY-19 PO; +FURO-150 PO; -GLIP10TA18 PO; +GUAI600T45 PO; +IPRA3AMP9 NEB; -LACT1CAP76 PO; -LISI-642 PO; +LISI20TA28 PO; -ONDA-243 PO; -ONDA-245 PO; -OXYB10TA4 PO; -PANT-47 PO
--- NOTE | 2025-05-11 17:09 | RADIOLOGY REPORT ---
EXAM: CT CT LUMBAR SPINE HISTORY: CHRONIC RADICULAR LOW BACK PAIN COMPARISON: None TECHNIQUE: Noncontrast axial CT images of the lumbar spine were performed. Sagittal and coronal refor matted images were obtained. This CT exam was performed using one or more of the following dose reduc tion techniques: Automated exposure control, adjustment of the mA and/or kv according to patient size , or the use of iterative reconstruction techniques. Radiation Dose: CT Dose: CTDI volume is 34.16 mGy. Dose-length product is 1007.05 mGy*cm FINDINGS: No fracture or listhesis are identified in the lumbar spine. There is moderate to advanced degenerati ve disc disease and facet arthropathy. No significant spinal canal stenosis at any level in the lumba r spine. There is significant neural foraminal stenosis on the right at L4-L5. There is a lumbosacra l transitional vertebrae with partial sacralization of L5. There are subcentimeter bilateral renal no nobstructing calculi. There is right renal homogeneous cyst, not fully imaged here. The liver is di ffusely fatty density. The gallbladder is surgically absent. IMPRESSION: 1. No fracture of the lumbar spine. 2. Degenerative disc disease and facet arthropathy with significant neural foraminal stenosis on the right at L4-L5. These findings May correspond to right lower extremity radicular symptoms in the L4 nerve root distribution. Consider follow-up noncontrast MRI of the lumbar spine for better characteri zation if the patient is MRI compatible. 3. Lumbosacral transitional vertebrae. 4. Hepatic steatosis. 5. Bilateral nonobstructing nephrolithiasis.
--- NOTE | 2025-05-11 17:13 | RADIOLOGY REPORT ---
EXAM: CT CT LOWER EXTREMITY HISTORY: RIGHT HIP PAIN 60-year-old female with chronic low back pain radiating to the right hip. COMPARISON: None TECHNIQUE: Noncontrast axial CT images of the right hip were performed. Sagittal and coronal reformat jayshree images were obtained. This CT exam was performed using one or more of the following dose reductio n techniques: Automated exposure control, adjustment of the mA and/or kV according to patient size, o r use of iterative reconstruction technique. Radiation Dose Information: CT Dose: CTDI volume is 25.8 2 mGy. Dose-length product is 883.76 mGy*cm FINDINGS/IMPRESSION: 1. No acute fracture of the right hip. 2. Xwot-ji-iowixjds osteoarthritis of the right hip with marginal osteophytes and mild joint space na rrowing. 3. Enthesopathic calcifications of the greater trochanter, lesser trochanter, ischial tuberosity, and iliac crest. 4. Sigmoid colon diverticulosis, not fully imaged here. 5. Probable section scar. 6. Lower lumbar degenerative disc disease, not fully imaged here. Lumbosacral transitional vertebrae incidentally noted.
== END 2025-05-11 23:59 | disposition home or self-care (01) ==
LOC: RAD 13:46
PROVIDERS: ATTEND Nurse Practitioner
DX: M16.11 Unilateral primary osteoarthritis, right hip (principal); M25.751 Osteophyte, right hip; M25.851 Other specified joint disorders, right hip; M47.26 Other spondylosis with radiculopathy, lumbar region; M48.061 Spinal stenosis, lumbar region without neurogenic claudication; M51.16 Intervertebral disc disorders with radiculopathy, lumbar region; N20.0 Calculus of kidney; K76.0 Fatty (change of) liver, not elsewhere classified; M25.551 Pain in right hip; N28.1 Cyst of kidney, acquired; K57.30 Diverticulosis of large intestine without perforation or abscess without bleeding; Z90.49 Acquired absence of other specified parts of digestive tract
CPT/HCPCS: 72131; 73700

== ENCOUNTER 2025-05-25 19:07 | Inpatient (IN) | payer MEDICAID ==
[~2025-05-25] VITALS: Ht 320 cm; Wt 104.0 kg
[2025-05-25 19:46] LABS: MEAN PLATELET VOLUME 9.3 FL (7.4-10.4); RED CELL DISTRIBUTION WIDTH 15.1 % (11.5-14.5)
--- NOTE | 2025-05-25 19:56 | RADIOLOGY REPORT ---
CHEST RADIOGRAPH Indication: CP Technique: Single frontal view of the chest was obtained Comparison: DI CHEST,SINGLE VIEW on DOS: 10/17/24, CHEST,SINGLE VIEW on DOS: 02/09/23 FINDINGS: Lines and Tubes: None Lungs: No focal consolidation. Interstitial prominence. Pleura: No effusion. No pneumothorax. Cardiomediastinal contours: Unremarkable Bones: No acute osseous abnormality. IMPRESSION: Mild pulmonary vascular congestion. No focal consolidation.
[2025-05-25 20:11] LABS: CREATININE 0.89 MG/DL (0.40-0.90); PRO BRAIN NATRIURETIC PEPTIDE 44 PG/ML (0-125); TOTAL CARBON DIOXIDE 27.8 MMOL/L (24-32); eCRCL 65 ML/MIN; eGFR 65 ML/MIN
[2025-05-26] VITALS (18 sets, daily range): BP systolic 103–154; BP diastolic 55–70; PULSE 84–104; RESP 15–20; TEMP 97.9–98.7; O2SAT 94–100
--- NOTE | 2025-05-26 | Physician Documentation ---
History of Present Illness ~ Chief Complaint: Chest Pain Stated Complaint: CHEST PAIN Time Seen by MD: 23:38 Primary Medical Doctor: ABEBA Saldana Mode of Arrival: EMS HPI Patient presents to the emergency room with chest pain. Patient was sitting doing nothing when pain occurred however was relieved with nitroglycerin EN route by EMS. Patient endorses history of hypertension as well as diabetes in first-degree relative with heart disease. She does not smoke. No current chest pain. She states she does have a mobile tester in had an exercise stress test attempted last May however the exam was stopped secondary to hypertension as per patient Medication Reconciliation Allergies: Coded Allergies: No Known Allergies (Unverified , 10/17/24) Scheduled Amitriptyline Hcl (Amitriptyline Hcl), 1 TAB PO HS, (Reported) Furosemide (Lasix), 20 MG PO DAILY Guaifenesin (Mucinex), 1 TAB PO Q12H Lisinopril (Lisinopril), 1 TAB PO QAM, (Reported) Scheduled PRN Ipratropium/Albuterol Sulfate (IPRAT-ALBUT 0.5-3(2.5) MG/3 ML nebule), 3 ML NEB Q4H PRN for SOB or wheezing Past Medical History Past Medical History: Diabetes, Chronic Back Pain Past Surgical History: cholecystectomy Patient History: FH: diabetes mellitus FATHER MOTHER FH: gallbladder disease MOTHER Hypertension in mother MOTHER Lung cancer FATHER Smoking Status: Former smoker Alcohol Use: None Drug Use: none Lives In: Homeless Review of Systems ROS All review of systems negative except as per HPI Physical Exam Vital Signs: Temperature: 99.3, Source: Oral, Heart Rate: 87, Respiratory Rate: 18, BP: 151/86, Pulse Oximetry: 96, Weight: 104.000 Physical Exam General: Patient is awake, alert, oriented x4 in no acute distress Head: Normocephalic and atraumatic. Eyes: Conjunctival normal. EOMI. PERRL. ENT: Mucous membranes moist. Neck: Supple, trachea is midline. Chest: Clear to auscultation bilaterally without rales, rhonchi, or wheezes. There is no accessory muscle use or retractions. Cardiac: RRR without murmurs, gallops, or rubs. Abd: Soft, nondistended, nontender, with normoactive bowel sounds. No guarding, rebound, or rigidity. Extremities: Normal strength. Normal range of motion. No deformities or edema. No calf tenderness to palpation Progress Results/Orders Results/Orders Orders - TONY COOMBS MD Chest,Single View (05/25/25 19:30) Monitor (05/25/25 19:17) Saline Lock (05/25/25 19:17) Oxygen (05/25/25 19:17) Electrocardiogram (05/25/25 19:17) Page Hospitalist (05/26/25 00:00) Fill Out Med Reconciliation (05/26/25 00:00) Completed Orders - TONY COOMBS MD Chest,Single View (05/25/25 19:30) Cbc/Diff (05/25/25 19:17) BMP (05/25/25 19:17) PBNP (05/25/25 19:17) Hs Troponin I W Calculations (05/25/25 19:17) Hs Troponin I W Calculations (05/25/25 21:17) Hs Troponin I W Calculations (05/25/25 22:17) Vital Signs 05/25/25 05/25/25 05/25/25 05/25/25 19:12 19:18 19:19 21:02 Temp 99.3 99.3 99.3 Pulse 100 97 95 Resp 18 19 18 22 B/P (MAP) 170/81 (110) 158/77 (104) Pulse Ox 97 97 95 05/25/25 05/25/25 22:20 23:44 Temp 99.3 99.3 Pulse 101 87 Resp 18 18 B/P (MAP) 154/86 (108) 151/86 (107) Pulse Ox 96 96 Laboratory Tests Test 05/25/25 19:24 05/25/25 21:07 05/25/25 21:22 05/25/25 22:18 White Blood Count 8.3 Red Blood Count 4.57 Hemoglobin 12.4 Hematocrit 36.7 Mean Corpuscular Volume 80.5 Mean Corpuscular Hemoglobin 27.1 Mean Corpuscular Hemoglobin Concent 33.7 Red Cell Distribution Width 15.1 H Platelet Count 174 Mean Platelet Volume 9.3 Neutrophils (%) (Auto) 66.4 Lymphocytes (%) (Auto) 24.9 Monocytes (%) (Auto) 6.6 Eosinophils (%) (Auto) 1.6 Basophils (%) (Auto) 0.5 Neutrophils # (Auto) 5.5 Lymphocytes # (Auto) 2.1 Monocytes # (Auto) 0.5 Eosinophils # (Auto) 0.1 Basophils # (Auto) 0.0 CBC Comment Sodium Level 138 Potassium Level 3.3 L Chloride Level 104 Carbon Dioxide Level 27.8 Anion Gap 6 L Blood Urea Nitrogen 10 Creatinine 0.89 Estimated GFR/1.73 m2 65 BUN/Creatinine Ratio 11.2 Glucose Level 250 H Calcium Level 8.2 L Troponin I High Sensitivity 4 5 5 Pro-B-Type Natriuretic Peptide 44 Albumin 3.1 L Chemistry Comments Glucometer 223 H Troponin I High Sens Percent Delta 25 0 Troponin I Hi Sens Absolute Change 1 0 EKG/XRAY/CT/US/VASC/MRI EKG : Additional Comment EKG interpreted by myself shows time of 1912, rate 99, sinus rhythm, borderline left axis deviation, no ST changes Chest X-Ray : Additional Comments Exam: CHEST,SINGLE VIEW CHEST RADIOGRAPH Indication: CP Technique: Single frontal view of the chest was obtained Comparison: DI CHEST,SINGLE VIEW on DOS: 10/17/24, CHEST,SINGLE VIEW on DOS: 02/09/23 FINDINGS: Lines and Tubes: None Lungs: No focal consolidation. Interstitial prominence. Pleura: No effusion. No pneumothorax. Cardiomediastinal contours: Unremarkable Bones: No acute osseous abnormality. IMPRESSION: Mild pulmonary vascular congestion. No focal consolidation. Medical Decision Making Findings Patient presents to the emergency room with chest pain as per HPI. Differentials include but are not limited to ACS, reflux, musculoskeletal pain, aortic pathology, pulmonary embolism therefore emergent labs and imaging indicat ed. No current symptoms therefore I do not feel patient requires investigation to aortic pathology or pulmonary embolism. Patient's pain did respond to nitroglycerin. Ultimately patient has not elevated heart score of four and we will admit for further investigation Departure Admitted to Inpatient Unit: yes, to hospitalist Impression: Primary Impression: Chest pain Condition: Guarded Referrals: NO PRIMARY CARE PROVIDER (PCP) Signature Scribe Signature: No scribe Attestation: The note accurately reflects work and decisions made by me.Tony Coombs MD 05/26/25 00:00 TONY COOMBS MD May 26, 2025 00:00
[2025-05-26] MEDS ORDERED: ondansetron/PF 4mg/2ml inj IV PRN (00:45)
[2025-05-26] MEDS ORDERED: potassium Cl 20 mEq SR tablet PO PRN (00:45)
[2025-05-26] MEDS ORDERED: magnesium sulf-water 4G/100mL 100 ML IV PRN (00:45)
[2025-05-26] MEDS ORDERED: HYDROcodone/acetaminophen 5mg/325mg tablet PO PRN (00:45)
[2025-05-26] MEDS ORDERED: mag hydrox/Alum hydrox/simeth 30ml oral suspension PO PRN (00:45)
[2025-05-26] MEDS ORDERED: magnesium Cl slow-release 64mg tablet PO PRN (00:45)
[2025-05-26] MEDS ORDERED: magnesium sulf-water 2g/50mL 50 ML IV PRN (00:45)
[2025-05-26] MEDS ORDERED: potassium Cl 40MEQ/1/2NS 520ml 520 ML IV PRN (00:45)
[2025-05-26] MEDS ORDERED: HYDROcodone/acetaminophen 10/325mg tab PO PRN (00:45)
[2025-05-26] MEDS ORDERED: GLIP5TAB23 PO (01:17)
--- NOTE | 2025-05-26 01:17 | HISTORY AND PHYSICAL-Residence ---
History & Physical Providers to CC Resident Creating Document: LARENEEMARY RES ~ History of Present Illness [facility] Reason for Admit\Complaint: CHEST PAIN History of Present Illness 60-year-old female with history of hypertension, diabetes type 2, hypokalemia, migraine, CHF presented to the ED with chief complaints of chest pain since 3 p.m. yesterday. Retrosternal in location, sharp cramping type of pain 8/10 in intensity and Radiating to the back. Chest pain resolved after she was given nitroglycerin EN route. Currently she does not have any chest pain. Associated with shortness of breath, lower extremity swelling, stomach cramps and headaches. Denies fevers/chills, expectoration, palpitations, or weight loss/weight gain. Does not drink alcohol or smoke. No recreational drugs. She lives at the [place]. She had a sleep study done, awaiting results. Discussed advanced care directives and she wishes to be a full code. Allergies: Coded Allergies: No Known Allergies (Unverified , 10/17/24) Home Medications Home Medications Active Lasix (Furosemide) 20 Mg Tablet 20 Mg PO DAILY 30 Days Mucinex (Guaifenesin) 600 Mg Tablet.sa 1 Tab PO Q12H 10 Days IPRAT-ALBUT 0.5-3(2.5) MG/3 ML nebule (Ipratropium/Albuterol Sulfate) 0.5 Mg-3 Mg (2.5 Mg Base)/3 Ml Ampul.neb 3 Ml NEB Q4H PRN 10 Days Reported Lisinopril 20 Mg Tablet 1 Tab PO QAM Amitriptyline Hcl 25 Mg Tablet 1 Tab PO HS Past Medical History Past Medical History CHF Hypokalemia Diabetes type 2 Past Surgical History Surgical History Comment Cholecystectomy Tubal ligation Family History Family History: FH: diabetes mellitus FATHER MOTHER FH: gallbladder disease MOTHER Hypertension in mother MOTHER Lung cancer FATHER Past Social History Smoking: Quit greater than 1 year, Cigarettes Alcohol Use: None Drug Use: None Lives In: Homeless ROS ROS Reviewed in full. All negative except for pertinent positive HPI. Exam Vitals: Vital Signs Date Time Temp Pulse Resp B/P (MAP) Pulse Ox O2 Delivery O2 Flow Rate FiO2 05/25/25 23:44 99.3 87 18 151/86 (107) 96 General: General: Awake and Alert, no acute distress. HEENT: Conjunctiva pink, Sclera clear, Mucus Membranes moist. Neck: Supple without masses and tenderness. Resp: Unlabored. Bilateral basal crackles Heart: Regular rhythm, normal S1 and S2, no rub, murmur or gallop. Abdomen: Soft and non tender no organomegaly. Normal bowel sounds x4 quadrant normoactive. No guarding or rigidity. Extremities: Trace lower extremity edema. Normal ROM, nontender. 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 Skin: Warm and Dry. Diagnostic Data Last Recorded Lab Results: 05/25/25192305/26/25 0330 Advance Care Planning Advanced Care plannin - 30 Minutes Additional Plan 60-year-old female with history of hypertension, diabetes type 2, hypokalemia, migraine, CHF presented to the ED with chief complaints of chest pain since 3 p.m. yesterday. Atypical Angina, rule out ACS EKG no ST/T-wave changes noted Troponins negative, she is currently chest pain-free Started aspirin 81 mg p.o. daily and statin 40 p.o. daily Follow up with A1c lipid profile Lexiscan in a.m. History of CHF not in exacerbation, continue home medication Lasix 20 p.o. daily History of hypokalemia, replacement per protocol Diabetes type 2 on hyper/hypoglycemia protocol Med req done Code Status: Full code DVT prophylaxis: Heparin Analgesia/sedation: None Line/tube: PIV GI prophylaxis: Protonix Nutrition: Heart healthy Prognosis: Guarded Disposition: Continue medical management. Mary Serrano MD. IM Resident PGY-3 Date of Service: May 26, 2025 Billing Provider: HOLLIE CLAROS MD Common Visit Codes: [id number] INP/OBS CARE (HIGH) Assessment/Plan Assessment Evaluated the patient with the help of residents. Discussed the case with them. Reviewed notes by Dr. Hernandez. Agree with their assessments and plans. I also reviewed the patient's records. It included labs, radiology, notes from other providers. Will continue the current strategy for management. MARY SERRANO, RES May 26, 2025 01:17 HOLLIE CLAROS MD May 26, 2025 06:06
[2025-05-26] MEDS: potassium Cl 20 mEq SR tablet PO PRN (01:21)
[2025-05-26] MEDS ORDERED: dextrose 50%-water 50ml dispensing syringe IV PRN ×2 (02:05)
[2025-05-26] MEDS ORDERED: DEXTROSE 15 GM of carb/4 tabs (each vial/BOTTLE has 4 tablets) PO PRN ×2 (02:05)
[2025-05-26] MEDS ORDERED: glucagon, human recombinant 1mg kit SUBCUT PRN (02:05)
[2025-05-26] MEDS ORDERED: metoprolol tartrate 1mg/ml inj IV PRN (02:10)
[2025-05-26] MEDS ORDERED: aminophylline 500mg/20ml vial IV PRN (02:10)
[2025-05-26] MEDS: aspirin 81mg, enteric-coated 1 TAB TABLET.DR PO SCH (02:43)
--- NOTE | 2025-05-26 05:30 | ELECTROCARDIOGRAPH REPORT ---
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
[2025-05-26] MEDS: INSULIN LISPRO 100 UNIT/ML INSULN.PEN MULTI-DOSE SQ SCH ×2 (07:00→08:04)
[2025-05-26] MEDS: pantoprazole 40mg Tablet.DR PO SCH (07:57)
[2025-05-26] MEDS: heparin, porcine 5000 units/ml vial SQ SCH (07:58)
[2025-05-26] MEDS: K and/or MAG REPLACEMENT MC SCH (08:07)
[2025-05-26] MEDS: regadenoson 0.4mg/5ml syringe IV PRN (09:48)
[2025-05-26] MEDS ORDERED: aminophylline 250mg/10ml inj. IV PRN (09:50)
--- NOTE | 2025-05-26 11:19 | RADIOLOGY REPORT ---
EXAM: NM NM AVELINO SCAN HISTORY: cp COMPARISON: None TECHNIQUE: REST STUDY: 8.8 mCi of Technetium 99m-Tetrofosmin. STRESS STUDY: 37.2 mCi of Technetium 99m-Tetrofosmin. The patient was stressed with regadenoson 0.4 m g I of the. Cardiac-gated tomographic images of the heart were obtained in the short and long axis projections. I mages were obtained at rest and immediately following stress. Stress and rest images were performed o n the same day. FINDINGS: No perfusion defects are identified on the stress or rest images. Wall motion is normal. Left ventric ular ejection fraction is 62%. IMPRESSION: 1. No evidence of old myocardial infarct or stress-induced ischemia. 2. Normal wall motion and LVEF.
--- NOTE | 2025-05-26 11:51 | PROGRESS NOTE- Residence ---
Progress Note - Resident Providers to CC Resident Creating Document: SIDDHARTHA SORIA RES ~ Antibiotic Timeout Antibiotic Ordered?: No Subjective Patient is seen and admitted at bedside. She reports no longer feeling any and chest pain since admission, with only occasional shortness of breath. Patient denies fever, productive cough or other respiratory symptoms. No other complaints at this moment. Objective Vital Signs Date Time Temp Pulse Resp B/P (MAP) Pulse Ox O2 Delivery O2 Flow Rate FiO2 05/26/25 10:53 98.5 90 18 110/68 (82) 98 Room Air 05/26/25 09:54 0.0 Result Diagram: 05/25/25 1924 05/26/25 0330 General: Awake and Alert, no acute distress. HEENT: Conjunctiva pink, Sclera clear, Mucus Membranes moist. Neck: Supple without masses and tenderness. Resp: Unlabored. Bilateral basal crackles Heart: Regular rhythm, normal S1 and S2, no rub, murmur or gallop. Abdomen: Soft and non tender no organomegaly. Normal bowel sounds x4 quadrant normoactive. No guarding or rigidity. Extremities: 1+ bilateral lower extremity edema. Normal ROM, nontender. 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 Skin: Warm and Dry. Laboratory Tests Test 05/25/25 19:24 05/25/25 21:07 05/25/25 21:22 05/25/25 22:18 White Blood Count 8.3 X10'3 Red Blood Count 4.57 X10'6 Hemoglobin 12.4 g/dl Hematocrit 36.7 % Mean Corpuscular Volume 80.5 FL Mean Corpuscular Hemoglobin 27.1 PG Mean Corpuscular Hemoglobin Concent 33.7 g/dL Red Cell Distribution Width 15.1 % Platelet Count 174 X10'3 Mean Platelet Volume 9.3 FL Neutrophils (%) (Auto) 66.4 % Lymphocytes (%) (Auto) 24.9 % Monocytes (%) (Auto) 6.6 % Eosinophils (%) (Auto) 1.6 % Basophils (%) (Auto) 0.5 % Neutrophils # (Auto) 5.5 X10'3 Lymphocytes # (Auto) 2.1 X10'3 Monocytes # (Auto) 0.5 X10'3 Eosinophils # (Auto) 0.1 X10'3 Basophils # (Auto) 0.0 X10'3 CBC Comment Sodium Level 138 MMOL/L Potassium Level 3.3 MMOL/L Chloride Level 104 MMOL/L Carbon Dioxide Level 27.8 MMOL/L Anion Gap 6 Blood Urea Nitrogen 10 MG/DL Creatinine 0.89 MG/DL Estimated GFR/1.73 m2 65 ML/MIN BUN/Creatinine Ratio 11.2 Glucose Level 250 MG/DL Calcium Level 8.2 MG/DL Troponin I High Sensitivity 4 ng/L 5 ng/L 5 ng/L Pro-B-Type Natriuretic Peptide 44 PG/ML Albumin 3.1 G/DL Chemistry Comments Glucometer 223 mg/dl Troponin I High Sens Percent Delta 25 % 0 % Troponin I Hi Sens Absolute Change 1 ng/L 0 ng/L Test 05/26/25 01:33 05/26/25 02:30 05/26/25 03:30 05/26/25 11:32 D-Dimer Comment Hemoglobin A1c 7.7 % Glucometer 181 mg/dl 142 mg/dl D-Dimer 0.65 MG/L FEU Potassium Level 3.4 MMOL/L Magnesium Level 1.8 MG/DL Coagulation Studies Laboratory Tests Test 05/26/25 03:30 D-Dimer 0.65 MG/L FEU (0-0.50) H D-Dimer Comment Assessment Assessment This is a 50-year-old female patient with a history of obesity, diabetes, congestive heart failure, admitted for chest pain 06/28 in the substernal area radiating to the back. Patient was started on aspirin, atorvastatin and Lasix. Lexiscan showed no evidence of acute or chronic ischemia. Plan Plan Atypical Angina, rule out ACS EKG no ST/T-wave changes noted Troponins negative, she is currently chest pain-free Started aspirin 81 mg p.o. daily and statin 40 p.o. daily Follow up with A1c lipid profile Lexiscan in a.m. 05/26/25 Lexiscan results: No evidence of old myocardial infarct or stress-induced ischemia. Normal wall motion and LVEF. D-dimer 0.65, but wells score 0 Pending lipid profile Continue pantoprazole Monitor for new symptoms History of CHF not in exacerbation Continue home medication Lasix 20 p.o. daily Mild hypokalemia Replacement per protocol Diabetes type 2 05/26/25 A1c 7.7 Continue home medication Glipizide 5mg Hyper/hypoglycemia protocol Code Status: Full code DVT prophylaxis: Heparin Analgesia/sedation: Morphine/[place] Line/tube: PIV GI prophylaxis: Pantoprazole Nutrition: Healthy diet Prognosis: Guarded Disposition: Monitor for new symptoms. Anticipated discharge tomorrow if clinically stable. Date of Service: May 26, 2025 Billing Provider: SANTO FERGUSON MD SOBKELLY,SIDDHARTHA, RES May 26, 2025 11:51
[2025-05-26 12:02] LABS: MEAN PLATELET VOLUME 10.0 FL (7.4-10.4); RED CELL DISTRIBUTION WIDTH 15.5 % (11.5-14.5)
[2025-05-26] MEDS ORDERED: ipratropium/albuterol 3ml nebule NEB PRN (12:15)
[2025-05-26 12:19] LABS: CREATININE 0.96 MG/DL (0.40-0.90); TOTAL CARBON DIOXIDE 25.3 MMOL/L (24-32); eCRCL 105 ML/MIN; eGFR 60 ML/MIN
[2025-05-26 13:35] LABS: CHOL/HDL RATIO 3.3 (0.00-4.99); LDL CHOLESTEROL 129 MG/DL (50-100)
[2025-05-26] MEDS: guaiFENesin ER 600mg tablet PO SCH (20:32)
[2025-05-27] VITALS (8 sets, daily range): BP systolic 110–152; BP diastolic 58–77; PULSE 74–103; RESP 14–19; TEMP 97.6–98.4; O2SAT 93–97
[2025-05-27 07:20] LABS: MEAN PLATELET VOLUME 9.3 FL (7.4-10.4); RED CELL DISTRIBUTION WIDTH 15.1 % (11.5-14.5)
[2025-05-27 07:34] LABS: INR 1.0 INR
[2025-05-27 07:55] LABS: CHOL/HDL RATIO 3.6 (0.00-4.99); CREATININE 0.87 MG/DL (0.40-0.90); LDL CHOLESTEROL 122 MG/DL (50-100); PHOSPHORUS 2.5 MG/DL (2.3-4.5); TOTAL CARBON DIOXIDE 25.1 MMOL/L (24-32); eCRCL 116 ML/MIN; eGFR 67 ML/MIN
--- NOTE | 2025-05-27 11:46 | PROGRESS NOTE- Residence ---
Progress Note - Resident Providers to CC Resident Creating Document: SIDDHARTHA SORIA RES ~ Antibiotic Timeout Antibiotic Ordered?: No Subjective Patient is seen and admitted at bedside. Patient is asymptomatic today, with complete resolution of previous complaints. No overnight events reported. Objective Vital Signs Date Time Temp Pulse Resp B/P (MAP) Pulse Ox O2 Delivery O2 Flow Rate FiO2 05/27/25 08:07 82 05/27/25 06:00 98.1 19 146/77 (100) 96 Room Air 05/26/25 20:04 0 21 Result Diagram: 05/27/25 0624 05/27/25 06 General: Awake and Alert, no acute distress. HEENT: Conjunctiva pink, Sclera clear, Mucus Membranes moist. Neck: Supple without masses and tenderness. Resp: Unlabored. Bilateral basal crackles Heart: Regular rhythm, normal S1 and S2, no rub, murmur or gallop. Abdomen: Soft and non tender no organomegaly. Normal bowel sounds x4 quadrant normoactive. No guarding or rigidity. Extremities: Trace lower extremity edema. Normal ROM, nontender. 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 Skin: Warm and Dry. Coagulation Studies Laboratory Tests Test 05/26/25 03:30 05/27/25 06:24 D-Dimer 0.65 MG/L FEU (0-0.50) H D-Dimer Comment Prothrombin Time 10.7 SECONDS (9.0-12.0) INR International Normalized Ratio 1.0 INR Coagulation Comments Assessment Assessment This is a 50-year-old female patient with a history of obesity, diabetes, congestive heart failure, admitted for chest pain 8/10 in the substernal area radiating to the back. Patient was started on aspirin, atorvastatin and Lasix. Lexiscan showed no evidence of acute or chronic ischemia. Plan Plan Atypical Angina ACS ruled out EKG no ST/T-wave changes noted Troponins negative, she is currently chest pain-free Started aspirin 81 mg p.o. daily and atorvastatin 40 p.o. daily Follow up with A1c lipid profile Lexiscan in a.m. 05/26/25 Lexiscan results: No evidence of old myocardial infarct or stress-induced ischemia. Normal wall motion and LVEF. D-dimer 0.65, but wells score 0 Pending lipid profile Continue pantoprazole 05/27/25 Cholesterol 207, LDL 122, HDL 57, triglycerides 118 Pending official echocardiogram report We will continue to monitor for new symptoms today History of CHF not in exacerbation Continue home medication Lasix 20 p.o. daily Mild hypokalemia-resolved today 05/27/2025 Replacement as needed Diabetes type 2 A1c 7.7 Discontinued home medication Glipizide 5mg Started on insulin glargine 15 units at bedtime Hyper/hypoglycemia protocol Code Status: Full code DVT prophylaxis: Heparin Analgesia/sedation: Morphine/[place] Line/tube: PIV GI prophylaxis: Pantoprazole Nutrition: Healthy diet Prognosis: Guarded Disposition: Monitor for new symptoms. Anticipated discharge tomorrow if no new symptoms reported. Date of Service: May 27, 2025 Billing Provider: SANTO FERGUSON MD Common Visit Codes: [id number] INP/OBS CARE(HIGH) SIDDHARTHA SORIA, RES May 27, 2025 11:46 SANTO FERGUSON MD May 28, 2025 20:57
--- NOTE | 2025-05-27 17:36 | CARDIOLOGY REPORT ---
APPROVED REPORT EXAM: Comprehensive 2D, Doppler, and color-flow Echocardiogram. 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 150.7 cm/s AoV VTI 27.0 cm AO Peak GR. 9.1 mmHg AO Mean GR. 5 mmHg LVOT VTI 21.01 cm LVOT Peak Timothy. 106.3 cm/s URMILA (VMAX) 2.27 cm2 URMILA (VTI) 2.51 cm2 Mitral Valve MV E Velocity 66.1 cm/s MV DECEL TIME 179 ms MV A Velocity 87.2 cm/s MV PHT 59 ms E/A Ratio 0.8 MVA (PHT) 3.72 cm2 LEFT VENTRICLE Normal LV size and function. Mild concentric hypertrophy. Overall LVEF is 60-65%. RIGHT VENTRICLE RV is normal size and function. ATRIA Left atrium is mildly dilated. Right atrium is mildly dilated. AORTIC VALVE Trileaflet AV appears sclerotic without stenosis. No insufficiency. MITRAL VALVE The mitral valve is normal in structure. Trace mitral regurgitation. TRICUSPID VALVE TV appears structurally normal with no regurgitation. PULMONIC VALVE Pulmonic valve is not well visualized. GREAT VESSELS The aortic root is normal in size. PERICARDIUM Normal pericardium. No effusion. Other Information Study Quality: Fair Conclusion Overall LVEF is 60-65%. Normal LV size and function. Mild concentric hypertrophy. RV is normal size and function. Trileaflet AV appears sclerotic without stenosis. No insufficiency. The mitral valve is normal in structure. Trace mitral regurgitation. TV appears structurally normal with no regurgitation. Normal pericardium. No effusion.
[2025-05-27] MEDS: insulin glargine (Lantus) pen - multi-dose SQ SCH (21:08)
[2025-05-28 02:00] VITALS: BP 113/58; PULSE 88; RESP 17; TEMP 97.7; O2SAT 95
[2025-05-28 06:00] VITALS: BP 128/74; PULSE 82; RESP 14; TEMP 98.2; O2SAT 96
[2025-05-28 07:03] LABS: MEAN PLATELET VOLUME 9.2 FL (7.4-10.4); RED CELL DISTRIBUTION WIDTH 14.6 % (11.5-14.5)
[2025-05-28 07:12] LABS: CREATININE 0.94 MG/DL (0.40-0.90); PHOSPHORUS 3.0 MG/DL (2.3-4.5); TOTAL CARBON DIOXIDE 28.8 MMOL/L (24-32); eCRCL 107 ML/MIN; eGFR 61 ML/MIN
[2025-05-28 08:00] VITALS: RESP 23; O2SAT 94
[2025-05-28] MEDS ORDERED: FURO-150 PO (10:20)
[2025-05-28 11:00] VITALS: BP 122/59; PULSE 103; RESP 23; TEMP 97.5; O2SAT 94
[2025-05-28] MEDS ORDERED: FURO-149 PO (12:44)
[2025-05-28 15:36] VITALS: O2SAT 96
--- NOTE | 2025-05-28 17:13 | DISCHARGE SUMMARY-Residence ---
Discharge Summary Providers to CC Resident Creating Document: SIDDHARTHA SORIA RES ~ Discharge Summary Admission Diagnosis: CHEST PAIN Hospital Course DATE OF ADMISSION: 05/26/2025 DATE OF DISCHARGE: 05/28/2025 Lab results at discharge Hemoglobin 13.9 WBC 7.6 Plt count 186 Sodium 142 Potassium 3.4 BUN 19 Creatinine 0.94 Glucose 174 Triglycerides 118 Cholesterol 207 LDL 122 HDL 57 Image results Chest x-ray: Mild pulmonary vascular congestion. No focal consolidation. Echocardiogram: Overall LVEF is 60-65%. Normal LV size and function. Mild concentric hypertrophy. RV is normal size and function. Trileaflet AV appears sclerotic without stenosis. No insufficiency. The mitral valve is normal in structure. Trace mitral regurgitation. TV appears structurally normal with no regurgitation. Normal pericardium. No effusion. Lexiscan: No evidence of old myocardial infarct or stress-induced ischemia. Normal wall motion and LVEF. Discharge Diagnosis\Comment: Atypical chest pain Operations\Procedures: None Consultants: None Complications: None Condition on DC: Stable Discharge Summary: History of present illness 60-year-old female with history of hypertension, diabetes type 2, hypokalemia, migraine, CHF presented to the ED with chief complaints of chest pain since 3 p.m. yesterday. Retrosternal in location, sharp cramping type of pain 8/10 in intensity and Radiating to the back. Chest pain resolved after she was given nitroglycerin EN route. Currently she does not have any chest pain. Associated with shortness of breath, lower extremity swelling, stomach cramps and headaches. Denies fevers/chills, expectoration, palpitations, or weight loss/weight gain. Does not drink alcohol or smoke, denies recreational drugs. Hospital course Since admission patient did not have anymore episode of chest pain or shortness for breath. Chest x-ray shows pulmonary congestion, that can clinically improve after Lasix 40 mg IV daily. In addition, Lexiscan was negative for chronic or acute ischemia, echocardiogram without any significant change. She is asymptomatic today, is stable to be discharged and to follow up with her PCP. Discharge physical exam General: Awake and Alert, no acute distress. HEENT: Conjunctiva pink, Sclera clear, Mucus Membranes moist. Neck: Supple without masses and tenderness. Resp: Unlabored. Lungs clear to auscultation bilaterally. Heart: Regular Rate and rhythm, normal S1 and S2 without murmur, rub or gallop. Abdomen: Soft and non tender no organomegaly Extremities: No cyanosis,clubbing or edema. Skin: Warm and Dry. Discharge medication Lasix 40 mg p.o. daily Discharge course Follow-up with your PCP in one week Continue with the patient follow-up for noncardiac chest pain Eat healthy diet Exercise daily Follow-up on your diabetes Continue home medication Take Lasix 40 mg daily Call 911 or come back to the ED in case of severe chest pain, shortness of breath or any concerning symptoms *Problems/Diagnosis: (1) Chest pain Status: Resolved (2) Shortness of breath Status: Resolved Total Time Spent on D/C: Up to 30 Minutes Date of Service: May 28, 2025 Billing Provider: SANTO FERGUSON MD Common Visit Codes: 74715-PFE/OBS DISCH DAY >30min Problem Qualifiers (1) Chest pain: Chest pain type: unspecified Qualified Codes: R07.9 - Chest pain, unspecified SIDDHARTHA SORIA, RES May 28, 2025 17:09 SANTO FERGUSON MD May 28, 2025 20:58
== END 2025-05-28 14:30 | disposition home or self-care (01) | DRG 198 ==
LOC: ER 19:07 → ED HOLD 05-26 00:48 → EDBEDREQ 05-26 02:45 → PCU 3S 05-26 02:56
PROVIDERS: ADMIT Internal Medicine Critical Care Medicine; ATTEND Internal Medicine
PROC: 4A02XM4 Measurement of Cardiac Total Activity, External Approach (ICD-10-PCS; principal; 2025-05-26)
PROC: 3E033HZ Introduction of Radioactive Substance into Peripheral Vein, Percutaneous Approach (ICD-10-PCS; 2025-05-26)
DX: R07.89 Other chest pain (principal); I20.0 Unstable angina; I50.9 Heart failure, unspecified; E11.9 Type 2 diabetes mellitus without complications; G43.909 Migraine, unspecified, not intractable, without status migrainosus; E87.6 Hypokalemia; Z79.899 Other long term (current) drug therapy; Z90.49 Acquired absence of other specified parts of digestive tract; Z87.891 Personal history of nicotine dependence; Z59.00 Homelessness unspecified
CPT/HCPCS: 36415; 71045; 78452; 80048; 80053; 80061; 82948; 83036; 83735; 83880; 84100; 84484; 85025; 85379; 85610; 87081; 93005; 93017; 93306; 94760; 97161; 97530; 99285; A9500; G0378; J1644; J1815; J2785